=== PATIENT | female | born 1960 | race African-American/Black ===

== ENCOUNTER 2017-01-29 06:56 | Emergency (ER) | payer MEDICAID, OTHER ==
[~2017-01-29] VITALS: Ht 180.3 cm; Wt 81.0 kg
[~2017-01-29 06:56] MED LIST: ELAVIL; GABA300C PO; GLYBURIDE; METFORMIN PO
[2017-01-29 07:50] LABS: BASOPHILS % 0.8 % (0.0-2.0); EOSINOPHILS % 1.7 % (0.0-5.0); HEMATOCRIT. 41.6 % (36.0-48.0); HEMOGLOBIN. 13.5 g/dL (12.0-16.0); LYMPHOCYTES % 29.8 % (20.0-50.0); MEAN CORPUSCULAR HEMOGLOBIN 28.7 pg (28.0-32.0); MEAN CORPUSCULAR VOLUME 88.2 fL (81.0-99.0); MEAN PLATELET VOLUME 7.4 fl (7.4-10.4); MONOCYTES % 6.3 % (2.0-8.0); NEUTROPHILS % 61.4 % (40.0-76.0); PLATELET 252 x1000/uL (130-400); RED BLOOD CELL COUNT 4.72 mill/uL (4.2-5.4); RED CELL DISTRIBUTION WIDTH 15.2 % (11.6-14.6)
[2017-01-29 08:03] LABS: CHLORIDE 99 mEq/L (98-107)
[2017-01-29 08:04] LABS: CARBON DIOXIDE 33 mEq/L (21-32)
[2017-01-29 08:11] LABS: CLARITY URINE CLEAR (CLEAR); COLOR URINE YELLOW (YELLOW); GLUCOSE URINE 3+ (NEGATIVE); KETONES URINE NEGATIVE (NEGATIVE); LEUKOCYTE ESTERASE URINE NEGATIVE (NEGATIVE); NITRITE URINE NEGATIVE (NEGATIVE); OCCULT BLOOD URINE 1+ (NEGATIVE); PH URINE 6.5 (4.5-8.0); PROTEIN URINE 1+ (NEGATIVE); SPECIFIC GRAVITY URINE 1.038 (1.005-1.030)
[2017-01-29 09:23] VITALS: BP 142/88
== END 2017-01-29 09:26 | disposition home or self-care (01) ==
LOC: ER 07:30
DX: K62.5 Hemorrhage of anus and rectum (principal); F12.10 Cannabis abuse, uncomplicated; F17.200 Nicotine dependence, unspecified, uncomplicated; E11.9 Type 2 diabetes mellitus without complications; Z79.899 Other long term (current) drug therapy
CPT/HCPCS: 36415; 80048; 81001; 85025; 99284

== ENCOUNTER 2017-11-21 10:54 | Emergency (ER) | payer MEDICAID ==
[~2017-11-21] VITALS: Ht 180.3 cm; Wt 86.0 kg
[2017-11-21 11:35] VITALS: BP 158/84
[2017-11-21] MEDS ORDERED: PIPERACILLIN/TAZ 3.375G PREMIX 50 ML IV ONE (12:30)
[2017-11-21] MEDS ORDERED: MORPHINE SULFATE 2 MG/ML CPJ (NOT FOR IM USE) IV ONE (12:30)
[2017-11-21] MEDS ORDERED: PIPERACILLIN/TAZOBACTAM 3.375GM/50ML PREMIX IV ONE (12:30)
[2017-11-21] MEDS ORDERED: CEFTRIAXONE SODIUM 1 G/VIAL IM ONE (12:30)
== END 2017-11-21 18:35 | disposition left against medical advice (07) ==
LOC: ER 11:36
DX: M79.645 Pain in left finger(s) (principal); J45.909 Unspecified asthma, uncomplicated; J44.9 Chronic obstructive pulmonary disease, unspecified; E11.9 Type 2 diabetes mellitus without complications; I10 Essential (primary) hypertension; F12.10 Cannabis abuse, uncomplicated
CPT/HCPCS: 99281

== ENCOUNTER 2017-11-23 10:17 | Emergency (ER) | payer MEDICAID ==
[~2017-11-23] VITALS: Ht 180.3 cm; Wt 87.0 kg
[2017-11-23] MEDS ORDERED: CEPHALEXIN 500MG CAPSULE PO ONE (11:30)
[2017-11-23 11:57] VITALS: BP 139/82
== END 2017-11-23 12:24 | disposition home or self-care (01) ==
LOC: ER 10:55
DX: E11.621 Type 2 diabetes mellitus with foot ulcer (principal); L97.529 Non-pressure chronic ulcer of other part of left foot with unspecified severity; E11.40 Type 2 diabetes mellitus with diabetic neuropathy, unspecified; I10 Essential (primary) hypertension; F17.210 Nicotine dependence, cigarettes, uncomplicated; F12.90 Cannabis use, unspecified, uncomplicated; Z79.84 Long term (current) use of oral hypoglycemic drugs
CPT/HCPCS: 73660; 99284; Z7610

== ENCOUNTER 2018-12-18 12:11 | Emergency (ER) | payer MEDICAID ==
[~2018-12-18] VITALS: Ht 165.1 cm; Wt 82.0 kg
[2018-12-18] MEDS ORDERED: SODIUM CHLORIDE 0.9% 1,000 ML IV ONE (13:00)
[2018-12-18] MEDS ORDERED: ONDANSETRON HCL 4MG/2ML INJ IV ONE (13:00)
[2018-12-18] MEDS ORDERED: NA PHOS,M-B/NA PHOS,DI-BA ENEMA 118ML PR ONE (13:00)
[2018-12-18] MEDS ORDERED: MAGNESIUM CITRATE 300ML SOLUTION PO ONE (13:00)
[2018-12-18] MEDS ORDERED: LACTULOSE 20G/30ML UDC PO ONE (13:00)
[2018-12-18 15:55] LABS: CHLORIDE 99 mEq/L (98-107)
[2018-12-18 16:00] LABS: BASOPHILS % 0.5 % (0.0-2.0); EOSINOPHILS % 0.1 % (0.0-5.0); HEMATOCRIT. 43.4 % (36.0-48.0); HEMOGLOBIN. 13.8 g/dL (12.0-16.0); LYMPHOCYTES % 12.2 % (20.0-50.0); MEAN CORPUSCULAR HEMOGLOBIN 28.9 pg (28.0-32.0); MEAN CORPUSCULAR VOLUME 90.9 fL (81.0-99.0); MEAN PLATELET VOLUME 8.5 fl (7.4-10.4); MONOCYTES % 2.7 % (2.0-8.0); NEUTROPHILS % 84.5 % (40.0-76.0); PLATELET 274 x1000/uL (130-400); RED BLOOD CELL COUNT 4.77 mill/uL (4.2-5.4); RED CELL DISTRIBUTION WIDTH 13.9 % (11.6-14.6)
[2018-12-18 17:06] VITALS: BP 136/59
== END 2018-12-18 17:07 | disposition home or self-care (01) ==
LOC: ER 13:42
DX: K59.00 Constipation, unspecified (principal); E11.9 Type 2 diabetes mellitus without complications; Z79.899 Other long term (current) drug therapy
CPT/HCPCS: 36415; 80053; 82962; 85025; 93005; 96374; 99284; J2405; J7030; Z7610

== ENCOUNTER 2020-04-06 08:14 | Emergency (ER) | payer MEDICAID ==
[~2020-04-06] VITALS: Ht 167.6 cm; Wt 55.0 kg
[2020-04-06] MEDS ORDERED: TRAMADOL 50MG TABLET PO ONE (09:45)
[2020-04-06] MEDS ORDERED: IBUPROFEN 600MG TABLET PO ONE (09:45)
[2020-04-06] MEDS ORDERED: HYDROCODONE/ACETAMINOPHEN 5/325MG TABLET PO ONE (12:45)
[2020-04-06 12:55] VITALS: BP 148/69
== END 2020-04-06 13:04 | disposition home or self-care (01) ==
LOC: ER 08:14
DX: M48.061 Spinal stenosis, lumbar region without neurogenic claudication (principal); E11.9 Type 2 diabetes mellitus without complications; Z79.899 Other long term (current) drug therapy
CPT/HCPCS: 72131; 73502; 93005; 99284; 99285

== ENCOUNTER 2020-12-11 09:15 | Emergency (ER) | payer MEDICAID ==
[~2020-12-11] VITALS: Ht 177.8 cm; Wt 77.0 kg
[2020-12-11] MEDS ORDERED: IBUPROFEN 600MG TABLET PO STA (09:52)
[2020-12-11] MEDS ORDERED: HYDROCODONE/ACETAMINOPHEN 5/325MG TABLET PO ONE (10:30)
[2020-12-11 10:36] VITALS: BP 133/69
[2020-12-11 10:44] LABS: BASOPHILS % 0.7 % (0.0-2.0); EOSINOPHILS % 0.4 % (0.0-5.0); HEMATOCRIT. 41.5 % (36.0-48.0); HEMOGLOBIN. 13.5 g/dL (12.0-16.0); LYMPHOCYTES % 31.7 % (20.0-50.0); MEAN CORPUSCULAR HEMOGLOBIN 30.2 pg (28.0-32.0); MEAN CORPUSCULAR VOLUME 92.8 fL (81.0-99.0); MEAN PLATELET VOLUME 7.1 fl (7.4-10.4); MONOCYTES % 4.4 % (2.0-8.0); NEUTROPHILS % 62.8 % (40.0-76.0); PLATELET 297 x1000/uL (130-400); RED BLOOD CELL COUNT 4.47 mill/uL (4.2-5.4)
[2020-12-11 10:48] LABS: CHLORIDE 98 mEq/L (98-107)
[2020-12-11 10:49] LABS: CLARITY URINE CLEAR (CLEAR); COLOR URINE YELLOW (YELLOW); KETONES URINE NEGATIVE (NEGATIVE); LEUKOCYTE ESTERASE URINE NEGATIVE (NEGATIVE); NITRITE URINE NEGATIVE (NEGATIVE); OCCULT BLOOD URINE NEGATIVE (NEGATIVE); PH URINE 5.5 (4.5-8.0); PROTEIN URINE NEGATIVE (NEGATIVE); SPECIFIC GRAVITY URINE 1.007 (1.005-1.030); UROBILINOGEN URINE 0.2 E.U./dL (0.2-1.0)
[2020-12-11] MEDS ORDERED: AMOX-424 MT (11:06)
[2020-12-11] MEDS ORDERED: HYDR-4346 PO (11:07)
== END 2020-12-11 12:07 | disposition home or self-care (01) ==
LOC: ER 09:29
DX: S90.122A Contusion of left lesser toe(s) without damage to nail, initial encounter (principal); E11.9 Type 2 diabetes mellitus without complications; Z79.899 Other long term (current) drug therapy; X58.XXXA Exposure to other specified factors, initial encounter; Y93.89 Activity, other specified; Y92.89 Other specified places as the place of occurrence of the external cause; Y99.8 Other external cause status
CPT/HCPCS: 36415; 73630; 80053; 81003; 84550; 85025; 93005; 99285; Z7610

== ENCOUNTER 2020-12-23 18:17 | Emergency (ER) | payer MEDICAID ==
[~2020-12-23] VITALS: Ht 170.2 cm; Wt 77.0 kg
[~2020-12-23 18:17] MED LIST changes: +AMOX-424 MT; +HYDR-4346 PO
[2020-12-23 19:56] VITALS: BP 114/56
[2020-12-23 20:20] LABS: BASOPHILS % 0.4 % (0.0-2.0); EOSINOPHILS % 0.8 % (0.0-5.0); HEMATOCRIT. 38.8 % (36.0-48.0); HEMOGLOBIN. 12.8 g/dL (12.0-16.0); LYMPHOCYTES % 26.7 % (20.0-50.0); MEAN CORPUSCULAR HEMOGLOBIN 30.1 pg (28.0-32.0); MEAN PLATELET VOLUME 7.2 fl (7.4-10.4); MONOCYTES % 6.9 % (2.0-8.0); NEUTROPHILS % 65.2 % (40.0-76.0); PLATELET 285 x1000/uL (130-400); RED BLOOD CELL COUNT 4.27 mill/uL (4.2-5.4); RED CELL DISTRIBUTION WIDTH 13.6 % (11.6-14.6)
[2020-12-23 20:26] LABS: CHLORIDE 100 mEq/L (98-107)
[2020-12-23 20:30] LABS: C REACTIVE PROTEIN QUANT 1.3 mg/L (0.0-3.0)
[2020-12-23] MEDS ORDERED: TRAM50TA3 MT (21:08)
== END 2020-12-23 21:25 | disposition home or self-care (01) ==
LOC: ER 18:17
DX: M79.89 Other specified soft tissue disorders (principal); E11.9 Type 2 diabetes mellitus without complications; I10 Essential (primary) hypertension; Z79.899 Other long term (current) drug therapy
CPT/HCPCS: 36415; 73630; 80053; 85025; 86140; 99284; Z7610

== ENCOUNTER 2022-01-18 19:31 | Inpatient (IN) | payer MEDICAID ==
[~2022-01-18] VITALS: Ht 167.6 cm; Wt 76.2 kg
[~2022-01-18 19:31] MED LIST changes: +TRAM50TA3 MT
[2022-01-18 21:20] LABS: BASOPHILS % 0.5 % (0.0-2.0); EOSINOPHILS % 2.3 % (0.0-5.0); HEMATOCRIT. 35.6 % (36.0-48.0); HEMOGLOBIN. 11.3 g/dL (12.0-16.0); LYMPHOCYTES % 28.1 % (20.0-50.0); MEAN CORPUSCULAR HEMOGLOBIN 28.8 pg (28.0-32.0); MEAN CORPUSCULAR VOLUME 90.6 fL (81.0-99.0); MEAN PLATELET VOLUME 7.3 fl (7.4-10.4); MONOCYTES % 6.6 % (2.0-8.0); NEUTROPHILS % 62.5 % (40.0-76.0); PLATELET 255 x1000/uL (130-400); RED BLOOD CELL COUNT 3.93 mill/uL (4.2-5.4); RED CELL DISTRIBUTION WIDTH 14.2 % (11.6-14.6)
[2022-01-18 21:27] LABS: CHLORIDE 105 mEq/L (98-107)
[2022-01-18] MEDS ORDERED: FUROSEMIDE 40MG/4ML VIAL IVP ONE (22:00)
[2022-01-18] MEDS ORDERED: ASPIRIN 81MG TABLET PO ONE (22:00)
[2022-01-19] VITALS (7 sets, daily range): BP systolic 125–132; BP diastolic 76–88
[2022-01-19] MEDS: HYDROCODONE/ACETAMINOPHEN 5/325MG TABLET PO PRN ×2 (06:39→14:21)
[2022-01-19] MEDS ORDERED: NALOXONE HCL 0.4MG/ML VIAL IV PRN (09:00)
[2022-01-19] MEDS ORDERED: MORPHINE SULFATE 2 MG/ML CPJ (NOT FOR IM USE) IV NR (09:00)
[2022-01-19] MEDS ORDERED: CLONIDINE 0.1MG TABLET PO PRN (09:45)
[2022-01-19] MEDS ORDERED: DIPHENHYDRAMINE 50MG/ML VIAL IV PRN (09:45)
[2022-01-19] MEDS ORDERED: IPRATROPIUM/ALBUTEROL 0.5-3(2.5)MG/3ML NEB HHN PRN (09:45)
[2022-01-19] MEDS ORDERED: ACETAMINOPHEN 325MG TABLET PO PRN (09:45)
[2022-01-19] MEDS ORDERED: DEXTROSE 50% WATER 50ML SYRINGE IV PRN (10:00)
[2022-01-19] MEDS: BLOOD SUGAR DIAGNOSTIC STRIP TEST SCH ×3 (12:04→21:44)
[2022-01-19] MEDS ORDERED: INSULIN LISPRO 100 UNITS/ML SUBCUT SCH (13:10)
[2022-01-19] MEDS: MAGNESIUM/ALUMINUM HYDROXIDE/SIMETHICONE 30ML UDC PO PRN (17:52)
[2022-01-19] MEDS: METFORMIN HCL 500MG TABLET PO SCH (17:52)
[2022-01-19 20:14] LABS: BASOPHILS % 0.6 % (0.0-2.0); EOSINOPHILS % 1.8 % (0.0-5.0); HEMATOCRIT. 33.9 % (36.0-48.0); HEMOGLOBIN. 10.8 g/dL (12.0-16.0); LYMPHOCYTES % 35.6 % (20.0-50.0); MEAN CORPUSCULAR HEMOGLOBIN 29.2 pg (28.0-32.0); MEAN CORPUSCULAR VOLUME 91.7 fL (81.0-99.0); MEAN PLATELET VOLUME 7.5 fl (7.4-10.4); MONOCYTES % 6.7 % (2.0-8.0); NEUTROPHILS % 55.3 % (40.0-76.0); PLATELET 236 x1000/uL (130-400); RED CELL DISTRIBUTION WIDTH 14.2 % (11.6-14.6)
[2022-01-19 20:25] LABS: CHLORIDE 101 mEq/L (98-107)
[2022-01-19] MEDS ORDERED: ENOXAPARIN 80MG/0.8ML SYR SUBCUT NR (21:01)
[2022-01-19] MEDS: FUROSEMIDE 40MG/4ML VIAL IVP SCH (21:40)
[2022-01-19] MEDS: GABAPENTIN 300MG CAPSULE PO SCH (21:41)
[2022-01-19] MEDS: CARVEDILOL 3.125 MG TABLET PO SCH (21:41)
[2022-01-19] MEDS: ATORVASTATIN CALCIUM 10MG TABLET PO SCH (21:42)
[2022-01-19] MEDS: AMITRIPTYLINE 25MG TABLET PO SCH (21:42)
[2022-01-20] VITALS: BP 139/87
[2022-01-20 01:10] LABS: PROTHROMBIN TIME 10.8 sec (9.6-11.0)
[2022-01-20 01:23] LABS: *AMPHETAMINES SCREEN URINE NEGATIVE (NEGATIVE); *BARBITURATES SCREEN URINE NEGATIVE (NEGATIVE); *BENZODIAZEPINES SCREEN URINE NEGATIVE (NEGATIVE); *COCAINE SCREEN URINE NEGATIVE (NEGATIVE); CANNABINOID URINE SCREEN PRESUMTIVE POSITIVE (NEGATIVE); METHADONE URINE SCREEN NEGATIVE (NEGATIVE); OPIATES URINE SCREEN PRESUMTIVE POSITIVE (NEGATIVE); PHENCYCLIDINE URINE SCREEN NEGATIVE (NEGATIVE)
[2022-01-20 04:00] VITALS: BP 126/70
[2022-01-20] MEDS: GABAPENTIN 300MG CAPSULE PO SCH ×3 (05:52→21:42)
[2022-01-20] MEDS: BLOOD SUGAR DIAGNOSTIC STRIP TEST SCH ×4 (05:52→21:52)
[2022-01-20 06:14] LABS: BASOPHILS % 0.4 % (0.0-2.0); EOSINOPHILS % 2.2 % (0.0-5.0); HEMATOCRIT. 34.2 % (36.0-48.0); LYMPHOCYTES % 38.1 % (20.0-50.0); MEAN CORPUSCULAR HEMOGLOBIN 28.9 pg (28.0-32.0); MEAN CORPUSCULAR VOLUME 89.9 fL (81.0-99.0); MEAN PLATELET VOLUME 7.4 fl (7.4-10.4); MONOCYTES % 7.2 % (2.0-8.0); NEUTROPHILS % 52.1 % (40.0-76.0); PLATELET 242 x1000/uL (130-400); RED BLOOD CELL COUNT 3.81 mill/uL (4.2-5.4); RED CELL DISTRIBUTION WIDTH 14.1 % (11.6-14.6)
[2022-01-20 06:27] LABS: CHLORIDE 102 mEq/L (98-107)
[2022-01-20 06:37] LABS: HDL CHOLESTEROL 67 mg/dL (40-59); LDL CHOLESTEROL 129 mg/dL (5-100)
[2022-01-20 08:00] VITALS: BP 124/79
[2022-01-20] MEDS: CARVEDILOL 3.125 MG TABLET PO SCH ×2 (08:41→21:00)
[2022-01-20] MEDS: ASPIRIN 81MG EC TABLET PO SCH (08:41)
[2022-01-20] MEDS: ENOXAPARIN 80MG/0.8ML SYR SUBCUT SCH ×2 (08:42→21:43)
[2022-01-20] MEDS: FUROSEMIDE 40MG/4ML VIAL IVP SCH (08:42)
[2022-01-20] MEDS: ONDANSETRON HCL 4MG/2ML INJ IV PRN (08:46)
[2022-01-20] MEDS: METFORMIN HCL 500MG TABLET PO SCH (08:46)
[2022-01-20 12:00] VITALS: BP 120/67
[2022-01-20] MEDS: HYDROCODONE/ACETAMINOPHEN 5/325MG TABLET PO PRN ×2 (14:46→21:42)
[2022-01-20 16:00] VITALS: BP 113/60
[2022-01-20] MEDS ORDERED: DEXTROSE 50% WATER 50ML SYRINGE IV PRN ×2 (16:30→23:15)
[2022-01-20 16:45] LABS: TOTAL IRON BINDING CAPACITY 362 ug/dL (250-450)
[2022-01-20] MEDS: INSULIN LISPRO 100 UNITS/ML SUBCUT SCH ×2 (17:26→21:44)
[2022-01-20 17:41] LABS: FOLIC ACID (FOLATE) SERUM 12.7 ng/mL (>5.38)
[2022-01-20] MEDS ORDERED: METFORMIN HCL 500MG TABLET PO SCH (18:10)
[2022-01-20 20:00] VITALS: BP 113/61
[2022-01-20] MEDS: AMITRIPTYLINE 25MG TABLET PO SCH (21:42)
[2022-01-20] MEDS: ATORVASTATIN CALCIUM 10MG TABLET PO SCH (21:42)
[2022-01-20] MEDS: MAGNESIUM/ALUMINUM HYDROXIDE/SIMETHICONE 30ML UDC PO PRN (21:43)
[2022-01-20] MEDS ORDERED: HYDRALAZINE 20MG/ML VIAL IV PRN (23:15)
[2022-01-21] VITALS: BP 114/66
[2022-01-21 04:00] VITALS: BP 108/70
[2022-01-21] MEDS: GABAPENTIN 300MG CAPSULE PO SCH ×3 (06:07→20:22)
[2022-01-21] MEDS: BLOOD SUGAR DIAGNOSTIC STRIP TEST SCH ×4 (06:43→20:23)
[2022-01-21 07:22] LABS: BASOPHILS % 0.4 % (0.0-2.0); EOSINOPHILS % 3.3 % (0.0-5.0); HEMATOCRIT. 34.1 % (36.0-48.0); LYMPHOCYTES % 49.9 % (20.0-50.0); MEAN CORPUSCULAR HEMOGLOBIN 29.2 pg (28.0-32.0); MEAN CORPUSCULAR VOLUME 90.4 fL (81.0-99.0); MEAN PLATELET VOLUME 7.8 fl (7.4-10.4); MONOCYTES % 7.6 % (2.0-8.0); NEUTROPHILS % 38.8 % (40.0-76.0); PLATELET 240 x1000/uL (130-400); RED BLOOD CELL COUNT 3.77 mill/uL (4.2-5.4); RED CELL DISTRIBUTION WIDTH 14.1 % (11.6-14.6)
[2022-01-21 07:24] LABS: CHLORIDE 99 mEq/L (98-107)
[2022-01-21 08:00] VITALS: BP 123/42
[2022-01-21] MEDS: FUROSEMIDE 40MG/4ML VIAL IVP SCH (08:39)
[2022-01-21] MEDS: ASPIRIN 81MG EC TABLET PO SCH (08:39)
[2022-01-21] MEDS: ENOXAPARIN 80MG/0.8ML SYR SUBCUT SCH ×2 (08:39→20:22)
[2022-01-21] MEDS: CARVEDILOL 3.125 MG TABLET PO SCH ×2 (08:40→20:23)
[2022-01-21] MEDS: INSULIN LISPRO 100 UNITS/ML SUBCUT SCH ×4 (08:44→20:25)
[2022-01-21] MEDS ORDERED: LOSARTAN POTASSIUM 100 MG TABLET PO SCH (09:00)
[2022-01-21] MEDS: POLYETHYLENE GLYCOL 3350 (17GM) 1 DOSE PACK PO SCH (10:44)
[2022-01-21] MEDS: MAGNESIUM/ALUMINUM HYDROXIDE/SIMETHICONE 30ML UDC PO PRN (10:44)
[2022-01-21 12:00] VITALS: BP 126/71
[2022-01-21] MEDS ORDERED: AMLODIPINE 2.5MG TABLET PO SCH (12:45)
[2022-01-21 15:57] VITALS: BP 116/58
[2022-01-21] MEDS ORDERED: HYDRALAZINE HCL 50MG TABLET PO SCH (16:00)
[2022-01-21] MEDS: CYANOCOBALAMIN 1000MCG/ML VIAL SUBCUT SCH (16:23)
[2022-01-21] MEDS: PANTOPRAZOLE SODIUM 40 MG/VIAL IV SCH (16:23)
[2022-01-21] MEDS: AMLODIPINE 2.5MG TABLET PO SCH (16:24)
[2022-01-21 20:01] VITALS: BP 123/75
[2022-01-21] MEDS: AMITRIPTYLINE 25MG TABLET PO SCH (20:22)
[2022-01-21] MEDS: ATORVASTATIN CALCIUM 10MG TABLET PO SCH (20:22)
[2022-01-22] VITALS (15 sets, daily range): BP systolic 106–149; BP diastolic 26–83
[2022-01-22] MEDS: GABAPENTIN 300MG CAPSULE PO SCH ×3 (05:21→21:49)
[2022-01-22] MEDS: BLOOD SUGAR DIAGNOSTIC STRIP TEST SCH ×4 (05:24→21:49)
[2022-01-22] MEDS: INSULIN LISPRO 100 UNITS/ML SUBCUT SCH ×4 (05:40→21:55)
[2022-01-22 06:43] LABS: CHLORIDE 101 mEq/L (98-107)
[2022-01-22 06:47] LABS: BASOPHILS % 0.6 % (0.0-2.0); HEMATOCRIT. 30.8 % (36.0-48.0); HEMOGLOBIN. 10.2 g/dL (12.0-16.0); LYMPHOCYTES % 44.3 % (20.0-50.0); MEAN CORPUSCULAR HEMOGLOBIN 29.8 pg (28.0-32.0); MEAN PLATELET VOLUME 7.8 fl (7.4-10.4); MONOCYTES % 7.9 % (2.0-8.0); NEUTROPHILS % 44.2 % (40.0-76.0); PLATELET 223 x1000/uL (130-400); RED BLOOD CELL COUNT 3.42 mill/uL (4.2-5.4)
[2022-01-22] MEDS ORDERED: IODIXANOL 320MG/ML 100 ML BOTTLE IV ONE ×2 (08:39→09:39)
[2022-01-22] MEDS ORDERED: FENTANYL CITRATE/PF 50MCG/ML 2ML VIAL ONE (08:40)
[2022-01-22] MEDS ORDERED: MIDAZOLAM HCL 2 MG/2 ML VIAL ONE ×2 (08:40→09:14)
[2022-01-22] MEDS ORDERED: HEPARIN 1000 UNITS/ML 10ML ONE (08:40)
[2022-01-22] MEDS ORDERED: LIDOCAINE HCL 1% 10 MG/ML 10ML VIAL ONE (08:40)
[2022-01-22] MEDS: PANTOPRAZOLE SODIUM 40 MG/VIAL IV SCH (09:00)
[2022-01-22] MEDS: CYANOCOBALAMIN 1000MCG/ML VIAL SUBCUT SCH (09:00)
[2022-01-22] MEDS: ENOXAPARIN 80MG/0.8ML SYR SUBCUT SCH ×2 (09:00→21:50)
[2022-01-22] MEDS: CARVEDILOL 3.125 MG TABLET PO SCH ×2 (09:00→21:00)
[2022-01-22] MEDS: POLYETHYLENE GLYCOL 3350 (17GM) 1 DOSE PACK PO SCH (09:00)
[2022-01-22] MEDS: ASPIRIN 81MG EC TABLET PO SCH (09:00)
[2022-01-22] MEDS: FUROSEMIDE 40MG/4ML VIAL IVP SCH (09:00)
[2022-01-22] MEDS: AMLODIPINE 2.5MG TABLET PO SCH ×2 (09:00→16:10)
[2022-01-22] MEDS ORDERED: HEPARIN SODIUM 1,000 UNIT/1ML VIAL IV ONE (09:12)
[2022-01-22] MEDS ORDERED: NICARDIPINE 100MCG/ML 10ML VIAL (CATH LAB) IV ONE (09:12)
[2022-01-22] MEDS ORDERED: NITROGLYCERIN 50MCG/ML 10ML VIAL (CATH LAB) IV ONE (09:12)
[2022-01-22] MEDS ORDERED: ONDANSETRON HCL 4MG/2ML INJ ONE (09:33)
[2022-01-22] MEDS ORDERED: ASPIRIN 325MG TABLET ONE (10:03)
[2022-01-22] MEDS ORDERED: CLOPIDOGREL 75MG TABLET ONE (10:03)
[2022-01-22] MEDS ORDERED: ATROPINE SULFATE 1MG/10ML SYR IV PRN (10:30)
[2022-01-22] MEDS ORDERED: ONDANSETRON HCL 4MG/2ML INJ IV PRN (10:30)
[2022-01-22] MEDS ORDERED: ACETAMINOPHEN 325MG TABLET PO PRN (10:30)
[2022-01-22] MEDS: HYDROCODONE/ACETAMINOPHEN 5/325MG TABLET PO PRN (11:45)
[2022-01-22] MEDS: ONDANSETRON HCL 4MG/2ML INJ IV PRN (16:10)
[2022-01-22] MEDS: LIDOCAINE 5% PATCH TOP SCH (16:11)
[2022-01-22] MEDS ORDERED: ZOLPIDEM TARTRATE 5MG TABLET PO PRN (17:00)
[2022-01-22] MEDS: ATORVASTATIN CALCIUM 10MG TABLET PO SCH (21:49)
[2022-01-22] MEDS: AMITRIPTYLINE 25MG TABLET PO SCH (21:49)
[2022-01-23] VITALS (11 sets, daily range): BP systolic 91–126; BP diastolic 27–78
[2022-01-23] MEDS: GABAPENTIN 300MG CAPSULE PO SCH ×2 (05:07→13:12)
[2022-01-23] MEDS: BLOOD SUGAR DIAGNOSTIC STRIP TEST SCH ×2 (07:32→12:08)
[2022-01-23 07:49] LABS: BASOPHILS % 0.6 % (0.0-2.0); EOSINOPHILS % 1.6 % (0.0-5.0); HEMOGLOBIN. 10.2 g/dL (12.0-16.0); LYMPHOCYTES % 33.4 % (20.0-50.0); MEAN CORPUSCULAR VOLUME 91.2 fL (81.0-99.0); MEAN PLATELET VOLUME 7.7 fl (7.4-10.4); MONOCYTES % 10.2 % (2.0-8.0); NEUTROPHILS % 54.2 % (40.0-76.0); PLATELET 222 x1000/uL (130-400); RED BLOOD CELL COUNT 3.51 mill/uL (4.2-5.4); RED CELL DISTRIBUTION WIDTH 13.8 % (11.6-14.6)
[2022-01-23 08:00] LABS: CHLORIDE 101 mEq/L (98-107)
[2022-01-23] MEDS: ENOXAPARIN 80MG/0.8ML SYR SUBCUT SCH (08:48)
[2022-01-23] MEDS: LIDOCAINE 5% PATCH TOP SCH (08:49)
[2022-01-23] MEDS: PANTOPRAZOLE SODIUM 40 MG/VIAL IV SCH (08:49)
[2022-01-23] MEDS: FUROSEMIDE 40MG/4ML VIAL IVP SCH (08:49)
[2022-01-23] MEDS: CARVEDILOL 3.125 MG TABLET PO SCH (08:50)
[2022-01-23] MEDS: CYANOCOBALAMIN 1000MCG/ML VIAL SUBCUT SCH (08:50)
[2022-01-23] MEDS: AMLODIPINE 2.5MG TABLET PO SCH (08:50)
[2022-01-23] MEDS: POLYETHYLENE GLYCOL 3350 (17GM) 1 DOSE PACK PO SCH (08:51)
[2022-01-23] MEDS ORDERED: CLOPIDOGREL 75MG TABLET PO SCH (09:00)
[2022-01-23] MEDS ORDERED: ASPIRIN 325MG TABLET PO SCH (09:00)
[2022-01-23] MEDS ORDERED: FURO40TA5 MT (11:07)
[2022-01-23] MEDS ORDERED: DOCU100T MT (11:07)
[2022-01-23] MEDS ORDERED: AMLO5TAB88 MT (11:07)
[2022-01-23] MEDS ORDERED: ATOR10TA PO (11:07)
[2022-01-23] MEDS ORDERED: ASPI-1406 MT (11:07)
[2022-01-23] MEDS ORDERED: COR3 PO (11:07)
[2022-01-23] MEDS ORDERED: CLOP75TA15 PO (11:07)
[2022-01-23] MEDS ORDERED: FERR325T6 MT (11:07)
[2022-01-23] MEDS ORDERED: LIDO700A30 TOP (11:07)
[2022-01-23] MEDS ORDERED: BLOO-1482 MC (11:51)
[2022-01-23] MEDS: INSULIN LISPRO 100 UNITS/ML SUBCUT SCH ×2 (12:08→12:20)
[2022-01-24] MEDS ORDERED: PANTOPRAZOLE 40MG DR TABLET PO SCH (09:00)
[2022-01-24] MEDS ORDERED: ASPIRIN 81MG EC TABLET PO SCH (09:00)
== END 2022-01-23 15:05 | disposition home or self-care (01) | DRG 174 ==
LOC: ER 19:31 → MICUSO 21:56 → EDBEDREQ 22:06 → EDBEDREQTM 22:06 → 7WST 01-19 04:24 → 3WST 01-22 10:50
PROVIDERS: ADMIT Internal Medicine; ATTEND Internal Medicine
PROC: 027035Z Dilation of Coronary Artery, One Artery with Two Drug-eluting Intraluminal Devices, Percutaneous Approach (ICD-10-PCS; principal; 2022-01-22)
PROC: 4A023N7 Measurement of Cardiac Sampling and Pressure, Left Heart, Percutaneous Approach (ICD-10-PCS; 2022-01-22)
PROC: B211YZZ Fluoroscopy of Multiple Coronary Arteries using Other Contrast (ICD-10-PCS; 2022-01-22)
PROC: B215YZZ Fluoroscopy of Left Heart using Other Contrast (ICD-10-PCS; 2022-01-22)
DX: I21.4 Non-ST elevation (NSTEMI) myocardial infarction (principal); J96.01 Acute respiratory failure with hypoxia; I50.41 Acute combined systolic (congestive) and diastolic (congestive) heart failure; I42.0 Dilated cardiomyopathy; D50.9 Iron deficiency anemia, unspecified; E11.22 Type 2 diabetes mellitus with diabetic chronic kidney disease; E78.5 Hyperlipidemia, unspecified; F12.10 Cannabis abuse, uncomplicated; F17.210 Nicotine dependence, cigarettes, uncomplicated; K59.00 Constipation, unspecified; Z20.822 Contact with and (suspected) exposure to COVID-19; I25.10 Atherosclerotic heart disease of native coronary artery without angina pectoris; I13.0 Hypertensive heart and chronic kidney disease with heart failure and stage 1 through stage 4 chronic kidney disease, or unspecified chronic kidney disease; N18.9 Chronic kidney disease, unspecified; Z79.899 Other long term (current) drug therapy; Z79.891 Long term (current) use of opiate analgesic; Z79.84 Long term (current) use of oral hypoglycemic drugs; Z71.6 Tobacco abuse counseling; J44.9 Chronic obstructive pulmonary disease, unspecified
CPT/HCPCS: 36415; 71045; 80048; 80053; 80061; 80305; 82607; 82728; 82746; 82962; 83036; 83540; 83550; 83735; 83880; 84443; 84484; 85025; 85347; 87426; 92928; 93005; 93306; 93458; 93970; 99291; C1725; C1726; C1769; C1874; C1887; C1893; C9113; J1644; J1650; J1815; J1940; J2250; J2270; J2405; J3010; J3420; J3490; Q9967

== ENCOUNTER 2022-07-24 13:49 | Inpatient (IN) | payer MEDICAID ==
[~2022-07-24] VITALS: Ht 170.2 cm; Wt 85.4 kg
[~2022-07-24 13:49] MED LIST changes: +AMLO5TAB88 MT; -AMOX-424 MT; +ASPI-1406 MT; +BLOO-1482 MC; +CLOP75TA15 PO; +COR3 PO; +DOCU100T MT; +FERR325T6 MT; +FURO40TA5 MT; -GLYBURIDE; +LIDO700A30 TOP
[2022-07-24 14:39] LABS: BASOPHILS % 0.8 % (0.0-2.0); EOSINOPHILS % 0.8 % (0.0-5.0); HEMATOCRIT. 38.4 % (36.0-48.0); HEMOGLOBIN. 11.9 g/dL (12.0-16.0); LYMPHOCYTES % 31.8 % (20.0-50.0); MEAN CORPUSCULAR HEMOGLOBIN 26.2 pg (28.0-32.0); MEAN CORPUSCULAR VOLUME 84.6 fL (81.0-99.0); MEAN PLATELET VOLUME 7.7 fl (7.4-10.4); MONOCYTES % 5.8 % (2.0-8.0); NEUTROPHILS % 60.8 % (40.0-76.0); PLATELET 234 x1000/uL (130-400); RED BLOOD CELL COUNT 4.54 mill/uL (4.2-5.4); RED CELL DISTRIBUTION WIDTH 15.9 % (11.6-14.6)
[2022-07-24 15:46] LABS: CHLORIDE 98 mEq/L (98-107)
[2022-07-24 15:55] LABS: ETHANOL BLOOD < 10 mg/dL
[2022-07-24] MEDS ORDERED: FUROSEMIDE 40MG/4ML VIAL IV ONE (16:45)
[2022-07-24] MEDS ORDERED: ASPIRIN 81MG TABLET PO ONE (16:45)
[2022-07-24] MEDS ORDERED: ENOXAPARIN 80MG/0.8ML SYR SUBCUT ONE (17:30)
[2022-07-24 21:25] LABS: *AMPHETAMINES SCREEN URINE NEGATIVE (NEGATIVE); *BARBITURATES SCREEN URINE NEGATIVE (NEGATIVE); *BENZODIAZEPINES SCREEN URINE NEGATIVE (NEGATIVE); *COCAINE SCREEN URINE NEGATIVE (NEGATIVE); CANNABINOID URINE SCREEN PRESUMTIVE POSITIVE (NEGATIVE); METHADONE URINE SCREEN NEGATIVE (NEGATIVE); OPIATES URINE SCREEN NEGATIVE (NEGATIVE); PHENCYCLIDINE URINE SCREEN NEGATIVE (NEGATIVE)
[2022-07-25 00:30] VITALS: BP 113/68
[2022-07-25] MEDS ORDERED: NA PHOS,M-B/NA PHOS,DI-BA ENEMA 118ML PR PRN (02:30)
[2022-07-25] MEDS ORDERED: IPRATROPIUM/ALBUTEROL 0.5-3(2.5)MG/3ML NEB HHN PRN (02:30)
[2022-07-25] MEDS ORDERED: CLONIDINE 0.1MG TABLET PO PRN (02:30)
[2022-07-25] MEDS ORDERED: DIPHENHYDRAMINE 50MG/ML VIAL IV PRN (02:30)
[2022-07-25] MEDS ORDERED: GUAIFENESIN 200MG/10ML SUGAR FREE UDC PO PRN (02:30)
[2022-07-25] MEDS ORDERED: ACETAMINOPHEN 325MG TABLET PO PRN (02:30)
[2022-07-25] MEDS ORDERED: MAGNESIUM/ALUMINUM HYDROXIDE/SIMETHICONE 30ML UDC PO PRN (02:30)
[2022-07-25] MEDS ORDERED: DEXTROSE 50% WATER 50ML SYRINGE IV PRN (03:00)
[2022-07-25] MEDS: BLOOD SUGAR DIAGNOSTIC STRIP TEST SCH ×4 (06:33→21:00)
[2022-07-25] MEDS: PANTOPRAZOLE 40MG DR TABLET PO SCH (06:48)
[2022-07-25] MEDS: AMLODIPINE 5MG TABLET PO SCH (06:48)
[2022-07-25] MEDS: HYDROCODONE/ACETAMINOPHEN 10/325MG TABLET PO PRN ×2 (06:55→12:28)
[2022-07-25 07:22] LABS: HEMATOCRIT 35.4 % (36.0-48.0); HEMOGLOBIN 11.2 g/dL (12.0-16.0); MEAN CORPUSCULAR VOLUME 82.3 fL (81.0-99.0); PLATELET 230 x1000/uL (130-400); RED BLOOD CELL COUNT 4.31 mill/uL (4.2-5.4); RED CELL DISTRIBUTION WIDTH 15.7 % (11.6-14.6)
[2022-07-25 08:00] VITALS: BP 105/62
[2022-07-25] MEDS: ENOXAPARIN 40MG/0.4ML SYR SUBCUT SCH (08:28)
[2022-07-25] MEDS: CLOPIDOGREL 75MG TABLET PO SCH (08:29)
[2022-07-25] MEDS: ASPIRIN 81MG TABLET PO SCH (08:29)
[2022-07-25] MEDS: INSULIN LISPRO 100 UNITS/ML SUBCUT SCH ×4 (08:30→21:00)
[2022-07-25] MEDS: CARVEDILOL 3.125 MG TABLET PO SCH ×2 (08:31→21:00)
[2022-07-25] MEDS ORDERED: FUROSEMIDE 40MG TABLET PO SCH (09:00)
[2022-07-25 12:00] VITALS: BP 111/72
[2022-07-25] MEDS ORDERED: NALOXONE HCL 0.4MG/ML VIAL IV PRN (13:00)
[2022-07-25] MEDS: ONDANSETRON HCL 4MG/2ML INJ IV PRN (14:35)
[2022-07-25 16:00] VITALS: BP 108/55
[2022-07-25 16:14] LABS: CHLORIDE 99 mEq/L (98-107)
[2022-07-25 16:57] LABS: HDL CHOLESTEROL 53 mg/dL (40-59); LDL CHOLESTEROL 70 mg/dL (5-100); PHOSPHORUS 4.1 mg/dL (2.5-4.9); T4 FREE 1.36 ng/dL (0.76-1.46); TOTAL IRON BINDING CAPACITY 404 ug/dL (250-450)
[2022-07-25] MEDS: FUROSEMIDE 40MG/4ML VIAL IVP SCH (17:24)
[2022-07-25 20:00] VITALS: BP 98/57
[2022-07-25] MEDS: ATORVASTATIN CALCIUM 40MG TABLET PO SCH (21:00)
[2022-07-26] VITALS (7 sets, daily range): BP systolic 91–114; BP diastolic 52–64
[2022-07-26 06:32] LABS: BASOPHILS % 0.5 % (0.0-2.0); EOSINOPHILS % 0.6 % (0.0-5.0); HEMATOCRIT. 33.7 % (36.0-48.0); HEMOGLOBIN. 10.5 g/dL (12.0-16.0); LYMPHOCYTES % 31.5 % (20.0-50.0); MEAN CORPUSCULAR HEMOGLOBIN 26.1 pg (28.0-32.0); MEAN CORPUSCULAR VOLUME 83.5 fL (81.0-99.0); MEAN PLATELET VOLUME 7.5 fl (7.4-10.4); MONOCYTES % 8.4 % (2.0-8.0); PLATELET 229 x1000/uL (130-400); RED BLOOD CELL COUNT 4.03 mill/uL (4.2-5.4); RED CELL DISTRIBUTION WIDTH 15.6 % (11.6-14.6)
[2022-07-26] MEDS: BLOOD SUGAR DIAGNOSTIC STRIP TEST SCH ×4 (06:43→21:00)
[2022-07-26] MEDS: FUROSEMIDE 40MG/4ML VIAL IVP SCH ×2 (07:15→17:14)
[2022-07-26] MEDS: ENOXAPARIN 40MG/0.4ML SYR SUBCUT SCH (08:57)
[2022-07-26] MEDS: PANTOPRAZOLE 40MG DR TABLET PO SCH (08:58)
[2022-07-26] MEDS: ASPIRIN 81MG TABLET PO SCH (08:58)
[2022-07-26] MEDS: CLOPIDOGREL 75MG TABLET PO SCH (08:58)
[2022-07-26] MEDS: ACETAMINOPHEN 325MG TABLET PO PRN (08:59)
[2022-07-26] MEDS: INSULIN LISPRO 100 UNITS/ML SUBCUT SCH ×4 (08:59→21:55)
[2022-07-26] MEDS: AMLODIPINE 5MG TABLET PO SCH (08:59)
[2022-07-26] MEDS: CARVEDILOL 3.125 MG TABLET PO SCH ×2 (08:59→21:00)
[2022-07-26] MEDS: INSULIN GLARGINE 100 UNITS/ML SUBCUT SCH (10:06)
[2022-07-26] MEDS: GABAPENTIN 300MG CAPSULE PO SCH (15:02)
[2022-07-26] MEDS: HYDROCODONE/ACETAMINOPHEN 5/325MG TABLET PO PRN (17:01)
[2022-07-26] MEDS: ATORVASTATIN CALCIUM 40MG TABLET PO SCH (21:53)
[2022-07-26] MEDS: HYDROCODONE/ACETAMINOPHEN 10/325MG TABLET PO PRN (21:54)
[2022-07-27] VITALS (7 sets, daily range): BP systolic 82–117; BP diastolic 47–62
[2022-07-27] MEDS: FUROSEMIDE 40MG/4ML VIAL IVP SCH (06:50)
[2022-07-27 07:31] LABS: BASOPHILS % 0.4 % (0.0-2.0); EOSINOPHILS % 0.8 % (0.0-5.0); HEMATOCRIT. 32.9 % (36.0-48.0); HEMOGLOBIN. 10.4 g/dL (12.0-16.0); LYMPHOCYTES % 36.6 % (20.0-50.0); MEAN CORPUSCULAR HEMOGLOBIN 25.8 pg (28.0-32.0); MEAN CORPUSCULAR VOLUME 81.7 fL (81.0-99.0); MEAN PLATELET VOLUME 7.7 fl (7.4-10.4); MONOCYTES % 10.2 % (2.0-8.0); PLATELET 247 x1000/uL (130-400); RED BLOOD CELL COUNT 4.03 mill/uL (4.2-5.4); RED CELL DISTRIBUTION WIDTH 15.4 % (11.6-14.6)
[2022-07-27] MEDS: BLOOD SUGAR DIAGNOSTIC STRIP TEST SCH ×4 (07:40→20:27)
[2022-07-27 07:59] LABS: CHLORIDE 93 mEq/L (98-107)
[2022-07-27] MEDS: INSULIN LISPRO 100 UNITS/ML SUBCUT SCH ×4 (08:10→21:00)
[2022-07-27] MEDS: AMLODIPINE 5MG TABLET PO SCH (09:00)
[2022-07-27] MEDS: CARVEDILOL 3.125 MG TABLET PO SCH ×2 (09:00→20:28)
[2022-07-27] MEDS: ENOXAPARIN 40MG/0.4ML SYR SUBCUT SCH (09:21)
[2022-07-27] MEDS: CLOPIDOGREL 75MG TABLET PO SCH (09:22)
[2022-07-27] MEDS: FAMOTIDINE 20MG TABLET PO SCH (09:22)
[2022-07-27] MEDS: GABAPENTIN 300MG CAPSULE PO SCH (09:22)
[2022-07-27] MEDS: ASPIRIN 81MG TABLET PO SCH (09:22)
[2022-07-27] MEDS: INSULIN GLARGINE 100 UNITS/ML SUBCUT SCH (09:28)
[2022-07-27] MEDS: HYDROCODONE/ACETAMINOPHEN 5/325MG TABLET PO PRN (16:41)
[2022-07-27] MEDS ORDERED: ONDANSETRON 4MG ODT PO PRN (20:40)
[2022-07-27] MEDS: ACETAMINOPHEN 325MG TABLET PO PRN (20:56)
[2022-07-27] MEDS: ATORVASTATIN CALCIUM 40MG TABLET PO SCH (20:56)
[2022-07-28] VITALS: BP 108/61
[2022-07-28 04:00] VITALS: BP 104/59
[2022-07-28 05:39] LABS: BASOPHILS % 0.3 % (0.0-2.0); EOSINOPHILS % 0.7 % (0.0-5.0); HEMATOCRIT. 32.2 % (36.0-48.0); HEMOGLOBIN. 10.1 g/dL (12.0-16.0); LYMPHOCYTES % 36.2 % (20.0-50.0); MEAN CORPUSCULAR HEMOGLOBIN 25.9 pg (28.0-32.0); MEAN CORPUSCULAR VOLUME 82.3 fL (81.0-99.0); MEAN PLATELET VOLUME 7.5 fl (7.4-10.4); MONOCYTES % 11.5 % (2.0-8.0); NEUTROPHILS % 51.3 % (40.0-76.0); PLATELET 246 x1000/uL (130-400); RED BLOOD CELL COUNT 3.91 mill/uL (4.2-5.4); RED CELL DISTRIBUTION WIDTH 15.4 % (11.6-14.6)
[2022-07-28] MEDS: BLOOD SUGAR DIAGNOSTIC STRIP TEST SCH ×4 (06:40→20:59)
[2022-07-28] MEDS: INSULIN LISPRO 100 UNITS/ML SUBCUT SCH ×4 (07:41→21:09)
[2022-07-28 08:00] VITALS: BP 99/60
[2022-07-28] MEDS: ENOXAPARIN 40MG/0.4ML SYR SUBCUT SCH (08:44)
[2022-07-28] MEDS: FAMOTIDINE 20MG TABLET PO SCH (08:44)
[2022-07-28] MEDS: ASPIRIN 81MG TABLET PO SCH (08:44)
[2022-07-28] MEDS: AMLODIPINE 5MG TABLET PO SCH (08:45)
[2022-07-28] MEDS: CLOPIDOGREL 75MG TABLET PO SCH (08:45)
[2022-07-28] MEDS: CARVEDILOL 3.125 MG TABLET PO SCH ×2 (08:45→21:07)
[2022-07-28] MEDS: GABAPENTIN 300MG CAPSULE PO SCH (08:45)
[2022-07-28 09:10] LABS: CHLORIDE 93 mEq/L (98-107)
[2022-07-28] MEDS: HYDROCODONE/ACETAMINOPHEN 5/325MG TABLET PO PRN (09:22)
[2022-07-28] MEDS: INSULIN GLARGINE 100 UNITS/ML SUBCUT SCH (10:19)
[2022-07-28 12:00] VITALS: BP 113/76
[2022-07-28] MEDS: LIDOCAINE 5% PATCH TOP SCH (13:18)
[2022-07-28] MEDS ORDERED: SODIUM CHLORIDE 0.9% 250 ML IV ONE (14:45)
[2022-07-28 16:00] VITALS: BP 139/79
[2022-07-28] MEDS: SODIUM CHLORIDE 0.9% 1,000 ML IV SCH (16:14)
[2022-07-28 20:00] VITALS: BP 93/57
[2022-07-28] MEDS: ATORVASTATIN CALCIUM 40MG TABLET PO SCH (21:06)
[2022-07-29] VITALS: BP 111/67
[2022-07-29] MEDS: SODIUM CHLORIDE 0.9% 1,000 ML IV SCH (02:32)
[2022-07-29 04:00] VITALS: BP 103/61
[2022-07-29] MEDS: BLOOD SUGAR DIAGNOSTIC STRIP TEST SCH ×4 (06:49→21:38)
[2022-07-29 07:00] LABS: BASOPHILS % 0.3 % (0.0-2.0); EOSINOPHILS % 1.1 % (0.0-5.0); HEMOGLOBIN. 10.7 g/dL (12.0-16.0); LYMPHOCYTES % 29.4 % (20.0-50.0); MEAN CORPUSCULAR HEMOGLOBIN 25.7 pg (28.0-32.0); MEAN PLATELET VOLUME 7.4 fl (7.4-10.4); MONOCYTES % 10.7 % (2.0-8.0); NEUTROPHILS % 58.5 % (40.0-76.0); PLATELET 251 x1000/uL (130-400); RED BLOOD CELL COUNT 4.17 mill/uL (4.2-5.4); RED CELL DISTRIBUTION WIDTH 15.6 % (11.6-14.6)
[2022-07-29 07:36] LABS: CHLORIDE 91 mEq/L (98-107)
[2022-07-29 08:00] VITALS: BP 105/47
[2022-07-29] MEDS: INSULIN LISPRO 100 UNITS/ML SUBCUT SCH ×4 (08:10→21:50)
[2022-07-29] MEDS: AMLODIPINE 2.5MG TABLET PO SCH (09:00)
[2022-07-29] MEDS: CARVEDILOL 3.125 MG TABLET PO SCH ×2 (09:00→21:00)
[2022-07-29] MEDS: ASPIRIN 81MG TABLET PO SCH (09:11)
[2022-07-29] MEDS: CLOPIDOGREL 75MG TABLET PO SCH (09:12)
[2022-07-29] MEDS: FAMOTIDINE 20MG TABLET PO SCH (09:12)
[2022-07-29] MEDS: GABAPENTIN 300MG CAPSULE PO SCH (09:13)
[2022-07-29] MEDS: ENOXAPARIN 40MG/0.4ML SYR SUBCUT SCH (09:14)
[2022-07-29] MEDS: LIDOCAINE 5% PATCH TOP SCH (09:14)
[2022-07-29] MEDS: DOCUSATE SODIUM 100MG CAPSULE PO PRN (09:15)
[2022-07-29] MEDS: INSULIN GLARGINE 100 UNITS/ML SUBCUT SCH (09:58)
[2022-07-29] MEDS ORDERED: AMITRIPTYLINE 10MG TABLET PO NR (11:30)
[2022-07-29] MEDS ORDERED: FUROSEMIDE 40MG TABLET PO NR (11:30)
[2022-07-29] MEDS ORDERED: POTASSIUM CHLORIDE 10MEQ TABLET SR PO NR (11:30)
[2022-07-29 12:00] VITALS: BP 105/69
[2022-07-29 16:00] VITALS: BP 100/51
[2022-07-29] MEDS: ONDANSETRON HCL 4MG/2ML INJ IV PRN (16:54)
[2022-07-29 20:00] VITALS: BP 84/42
[2022-07-29] MEDS ORDERED: NOREPINEPHRINE 8 MG in DEXT 5% WATER 242 ML IV PRN (20:45)
[2022-07-29] MEDS ORDERED: NOREPINEPHRINE 8 MG in DEXTROSE 5% WATER 250 ML IV PRN (21:00)
[2022-07-29] MEDS ORDERED: NOREPINEPHRINE 8MG/250ML PMX 250 ML IV PRN (21:00)
[2022-07-29] MEDS: ATORVASTATIN CALCIUM 40MG TABLET PO SCH (21:43)
[2022-07-29] MEDS: AMITRIPTYLINE 10MG TABLET PO SCH (21:43)
[2022-07-30] VITALS (8 sets, daily range): BP systolic 80–145; BP diastolic 35–77
[2022-07-30] MEDS ORDERED: SODIUM CHLORIDE 0.9% 250 ML IV ONE
[2022-07-30] MEDS: BLOOD SUGAR DIAGNOSTIC STRIP TEST SCH ×4 (06:13→21:06)
[2022-07-30 07:53] LABS: BASOPHILS % 0.3 % (0.0-2.0); EOSINOPHILS % 0.3 % (0.0-5.0); HEMATOCRIT. 33.8 % (36.0-48.0); HEMOGLOBIN. 10.5 g/dL (12.0-16.0); LYMPHOCYTES % 22.8 % (20.0-50.0); MEAN CORPUSCULAR HEMOGLOBIN 25.7 pg (28.0-32.0); MEAN CORPUSCULAR VOLUME 82.8 fL (81.0-99.0); MEAN PLATELET VOLUME 7.6 fl (7.4-10.4); MONOCYTES % 10.7 % (2.0-8.0); NEUTROPHILS % 65.9 % (40.0-76.0); PLATELET 288 x1000/uL (130-400); RED BLOOD CELL COUNT 4.08 mill/uL (4.2-5.4); RED CELL DISTRIBUTION WIDTH 15.5 % (11.6-14.6)
[2022-07-30] MEDS: INSULIN LISPRO 100 UNITS/ML SUBCUT SCH ×4 (08:10→21:05)
[2022-07-30] MEDS ORDERED: FENTANYL CITRATE/PF 50MCG/ML 2ML VIAL ONE (08:41)
[2022-07-30] MEDS ORDERED: MIDAZOLAM HCL 2 MG/2 ML VIAL ONE (08:42)
[2022-07-30] MEDS ORDERED: LIDOCAINE HCL/PF 1% 10 MG/ML 5ML VIAL ONE ×2 (08:47→09:11)
[2022-07-30] MEDS: FAMOTIDINE 20MG TABLET PO SCH ×2 (09:00→11:31)
[2022-07-30] MEDS: FUROSEMIDE 40MG TABLET PO SCH (09:00)
[2022-07-30] MEDS: ASPIRIN 81MG TABLET PO SCH (09:00)
[2022-07-30] MEDS: LIDOCAINE 5% PATCH TOP SCH ×2 (09:00→11:31)
[2022-07-30] MEDS: CLOPIDOGREL 75MG TABLET PO SCH (09:00)
[2022-07-30] MEDS: AMLODIPINE 2.5MG TABLET PO SCH (09:00)
[2022-07-30] MEDS: GABAPENTIN 300MG CAPSULE PO SCH ×2 (09:00→11:32)
[2022-07-30] MEDS: CARVEDILOL 3.125 MG TABLET PO SCH ×2 (09:00→20:44)
[2022-07-30] MEDS: POTASSIUM CHLORIDE 10MEQ TABLET SR PO SCH ×2 (09:00→11:31)
[2022-07-30] MEDS ORDERED: HEPARIN 1000 UNITS/ML 10ML ONE (09:27)
[2022-07-30] MEDS: INSULIN GLARGINE 100 UNITS/ML SUBCUT SCH (10:00)
[2022-07-30] MEDS ORDERED: ASPIRIN 325MG TABLET ONE (10:14)
[2022-07-30] MEDS ORDERED: CLOPIDOGREL 75MG TABLET ONE (10:14)
[2022-07-30] MEDS ORDERED: ONDANSETRON HCL 4MG/2ML INJ IV PRN (10:45)
[2022-07-30] MEDS ORDERED: ATROPINE SULFATE 1MG/10ML SYR IV PRN (10:45)
[2022-07-30] MEDS ORDERED: ACETAMINOPHEN 325MG TABLET PO PRN (10:45)
[2022-07-30] MEDS: ACETAMINOPHEN 325MG TABLET PO PRN ×2 (11:30→20:43)
[2022-07-30] MEDS ORDERED: ENOXAPARIN 40MG/0.4ML SYR SUBCUT SCH (20:00)
[2022-07-30] MEDS: ATORVASTATIN CALCIUM 40MG TABLET PO SCH (20:43)
[2022-07-30] MEDS: AMITRIPTYLINE 10MG TABLET PO SCH (20:43)
[2022-07-31] VITALS: BP 94/66
[2022-07-31 04:00] VITALS: BP 108/68
[2022-07-31] MEDS: BLOOD SUGAR DIAGNOSTIC STRIP TEST SCH ×2 (06:23→11:50)
[2022-07-31] MEDS: INSULIN LISPRO 100 UNITS/ML SUBCUT SCH ×2 (06:24→12:45)
[2022-07-31 06:48] LABS: HEMATOCRIT. 31.2 % (36.0-48.0); HEMOGLOBIN. 9.8 g/dL (12.0-16.0); MEAN CORPUSCULAR HEMOGLOBIN 25.7 pg (28.0-32.0); MEAN CORPUSCULAR VOLUME 81.8 fL (81.0-99.0); MEAN PLATELET VOLUME 7.4 fl (7.4-10.4); PLATELET 285 x1000/uL (130-400); RED BLOOD CELL COUNT 3.81 mill/uL (4.2-5.4); RED CELL DISTRIBUTION WIDTH 15.7 % (11.6-14.6)
[2022-07-31 08:00] VITALS: BP 119/76
[2022-07-31] MEDS: DOCUSATE SODIUM 100MG CAPSULE PO PRN (08:57)
[2022-07-31] MEDS: GABAPENTIN 300MG CAPSULE PO SCH (08:57)
[2022-07-31] MEDS: FAMOTIDINE 20MG TABLET PO SCH (08:57)
[2022-07-31] MEDS: POTASSIUM CHLORIDE 10MEQ TABLET SR PO SCH (08:57)
[2022-07-31] MEDS: FUROSEMIDE 40MG TABLET PO SCH (08:57)
[2022-07-31] MEDS: CARVEDILOL 3.125 MG TABLET PO SCH (08:58)
[2022-07-31] MEDS: LIDOCAINE 5% PATCH TOP SCH (08:58)
[2022-07-31] MEDS: AMLODIPINE 2.5MG TABLET PO SCH (08:58)
[2022-07-31] MEDS ORDERED: CLOPIDOGREL 75MG TABLET PO SCH (09:00)
[2022-07-31] MEDS ORDERED: ASPIRIN 325MG TABLET PO SCH (09:00)
[2022-07-31 10:00] VITALS: BP 103/78
[2022-07-31] MEDS ORDERED: COR3 PO (11:25)
[2022-07-31] MEDS ORDERED: ASPI-986 PO (11:25)
[2022-07-31] MEDS ORDERED: AMIT10TA6 PO (11:25)
[2022-07-31] MEDS ORDERED: LIP40 PO (11:25)
[2022-07-31 12:00] VITALS: BP 106/73
[2022-07-31] MEDS: INSULIN GLARGINE 100 UNITS/ML SUBCUT SCH (12:46)
[2022-07-31 12:58] VITALS: BP 103/78
[2022-07-31 13:30] LABS: NUCLEATED RED BLOOD CELLS 1 /100 WBC; PLATELET ESTIMATE NORMAL
[2022-07-31 16:19] LABS: CHLORIDE 96 mEq/L (98-107)
== END 2022-07-31 15:30 | disposition home or self-care (01) | DRG 175 ==
LOC: ER 15:22 → EDBEDREQTM 16:44 → EDBEDREQ 16:44 → EDBEDREQTM 18:03 → EDBEDREQ 18:03 → 7WST 20:02 → 3WST 07-30 10:39
PROVIDERS: ADMIT Internal Medicine; ATTEND Internal Medicine
PROC: 0270356 Dilation of Coronary Artery, One Artery, Bifurcation, with Two Drug-eluting Intraluminal Devices, Percutaneous Approach (ICD-10-PCS; principal; 2022-07-30)
PROC: B211YZZ Fluoroscopy of Multiple Coronary Arteries using Other Contrast (ICD-10-PCS; 2022-07-30)
DX: T82.855A Stenosis of coronary artery stent, initial encounter (principal); I21.4 Non-ST elevation (NSTEMI) myocardial infarction; I50.43 Acute on chronic combined systolic (congestive) and diastolic (congestive) heart failure; I27.20 Pulmonary hypertension, unspecified; E87.1 Hypo-osmolality and hyponatremia; E11.9 Type 2 diabetes mellitus without complications; D50.9 Iron deficiency anemia, unspecified; I42.9 Cardiomyopathy, unspecified; I11.0 Hypertensive heart disease with heart failure; D64.9 Anemia, unspecified; E78.5 Hyperlipidemia, unspecified; I25.10 Atherosclerotic heart disease of native coronary artery without angina pectoris; J44.9 Chronic obstructive pulmonary disease, unspecified; Z20.822 Contact with and (suspected) exposure to COVID-19; I25.5 Ischemic cardiomyopathy; F17.210 Nicotine dependence, cigarettes, uncomplicated; F41.9 Anxiety disorder, unspecified; F32.A Depression, unspecified; Z79.899 Other long term (current) drug therapy; Z79.84 Long term (current) use of oral hypoglycemic drugs; Z95.5 Presence of coronary angioplasty implant and graft; I25.2 Old myocardial infarction; Z79.02 Long term (current) use of antithrombotics/antiplatelets; Z79.4 Long term (current) use of insulin; Z79.82 Long term (current) use of aspirin; Y83.1 Surgical operation with implant of artificial internal device as the cause of abnormal reaction of the patient, or of later complication, without mention of misadventure at the time of the procedure; Y92.89 Other specified places as the place of occurrence of the external cause
CPT/HCPCS: 36415; 71045; 71110; 76700; 80048; 80053; 80061; 80305; 80320; 82570; 82728; 82962; 83036; 83540; 83550; 83605; 83735; 83880; 83930; 83935; 84100; 84145; 84300; 84439; 84443; 84484; 85025; 85027; 85347; 85379; 87426; 92928; 93005; 93306; 93454; 93970; 99291; C1725; C1760; C1769; C1874; C1887; C1893; J1644; J1650; J1815; J1940; J2250; J2405; J3010; J3490; J7030; Q0162; G0480

== ENCOUNTER 2022-08-03 15:20 | Emergency (ER) | payer MEDICAID ==
[~2022-08-03] VITALS: Ht 172.7 cm; Wt 78.0 kg
[~2022-08-03 15:20] MED LIST changes: +AMIT10TA6 PO; +ASPI-986 PO; +LIP40 PO
[2022-08-03 15:27] VITALS: BP 105/50
== END 2022-08-03 22:53 | disposition left against medical advice (07) ==
LOC: ER 15:20
DX: Z53.21 Procedure and treatment not carried out due to patient leaving prior to being seen by health care provider (principal)

== ENCOUNTER 2022-08-13 06:37 | Inpatient (IN) | payer MEDICAID ==
[~2022-08-13] VITALS: Ht 175.3 cm; Wt 91.2 kg
[2022-08-13] MEDS ORDERED: FUROSEMIDE 100MG/10ML VIAL IVP ONE (07:30)
[2022-08-13] MEDS ORDERED: FUROSEMIDE 100MG/10ML VIAL IVP NR (09:45)
[2022-08-13 10:34] LABS: BASOPHILS % 0.3 % (0.0-2.0); CHLORIDE 96 mEq/L (98-107); EOSINOPHILS % 0.4 % (0.0-5.0); HEMATOCRIT. 36.8 % (36.0-48.0); HEMOGLOBIN. 11.2 g/dL (12.0-16.0); MEAN CORPUSCULAR HEMOGLOBIN 24.4 pg (28.0-32.0); MEAN CORPUSCULAR VOLUME 79.9 fL (81.0-99.0); MEAN PLATELET VOLUME 7.4 fl (7.4-10.4); MONOCYTES % 5.5 % (2.0-8.0); NEUTROPHILS % 73.8 % (40.0-76.0); PLATELET 249 x1000/uL (130-400); RED BLOOD CELL COUNT 4.61 mill/uL (4.2-5.4); RED CELL DISTRIBUTION WIDTH 15.9 % (11.6-14.6)
[2022-08-13 10:36] LABS: INR 1.1; PARTIAL THROMBOPLASTIN TIME 27.6 sec (23.4-31.0); PROTHROMBIN TIME 11.8 sec (9.6-11.0)
[2022-08-13] MEDS ORDERED: MAGNESIUM/ALUMINUM HYDROXIDE/SIMETHICONE 30ML UDC PO PRN (12:15)
[2022-08-13] MEDS ORDERED: ONDANSETRON HCL 4MG/2ML INJ IV PRN (12:15)
[2022-08-13] MEDS ORDERED: TRAMADOL 50MG TABLET PO PRN (12:15)
[2022-08-13] MEDS ORDERED: DOCUSATE SODIUM 100MG CAPSULE PO PRN (12:15)
[2022-08-13] MEDS ORDERED: ENOXAPARIN 40MG/0.4ML SYR SUBCUT SCH (12:15)
[2022-08-13] MEDS ORDERED: GUAIFENESIN 200MG/10ML SUGAR FREE UDC PO PRN (12:15)
[2022-08-13] MEDS ORDERED: ACETAMINOPHEN 325MG TABLET PO PRN (12:15)
[2022-08-13] MEDS: CLOPIDOGREL 75MG TABLET PO SCH (12:29)
[2022-08-13] MEDS: ENOXAPARIN 40MG/0.4ML SYR SUBCUT SCH (12:30)
[2022-08-13] MEDS ORDERED: NALOXONE HCL 0.4MG/ML VIAL IV PRN (12:30)
[2022-08-13] MEDS ORDERED: DEXTROSE 50% WATER 50ML SYRINGE IV PRN (15:30)
[2022-08-13] MEDS: GABAPENTIN 300MG CAPSULE PO SCH (16:26)
[2022-08-13] MEDS: METFORMIN HCL 500MG TABLET PO SCH (16:26)
[2022-08-13] MEDS: FUROSEMIDE 40MG/4ML VIAL IV SCH ×2 (16:26→23:25)
[2022-08-13] MEDS: CARVEDILOL 3.125 MG TABLET PO SCH (16:26)
[2022-08-13] MEDS ORDERED: FUROSEMIDE 40MG/4ML VIAL IV SCH ×2 (17:15)
[2022-08-13] MEDS: BLOOD SUGAR DIAGNOSTIC STRIP TEST SCH ×2 (17:21→21:00)
[2022-08-13] MEDS: INSULIN LISPRO 100 UNITS/ML SUBCUT SCH ×2 (17:38→21:00)
[2022-08-13] MEDS: NITROGLYCERIN OINT 1GM/INCH UDPKT TD SCH ×2 (17:44→22:00)
[2022-08-13] MEDS ORDERED: AMITRIPTYLINE 10MG TABLET PO SCH (21:00)
[2022-08-13] MEDS ORDERED: ATORVASTATIN CALCIUM 40MG TABLET PO SCH (21:00)
[2022-08-13 21:10] VITALS: BP 109/69
[2022-08-14 00:17] VITALS: BP 101/64
[2022-08-14 04:00] VITALS: BP 102/62
[2022-08-14] MEDS: NITROGLYCERIN OINT 1GM/INCH UDPKT TD SCH (05:30)
[2022-08-14] MEDS: BLOOD SUGAR DIAGNOSTIC STRIP TEST SCH (06:11)
[2022-08-14] MEDS: INSULIN LISPRO 100 UNITS/ML SUBCUT SCH (06:11)
[2022-08-14 07:37] LABS: BASOPHILS % 0.3 % (0.0-2.0); EOSINOPHILS % 1.3 % (0.0-5.0); HEMATOCRIT. 34.9 % (36.0-48.0); HEMOGLOBIN. 10.6 g/dL (12.0-16.0); MEAN CORPUSCULAR HEMOGLOBIN 24.4 pg (28.0-32.0); MEAN PLATELET VOLUME 7.3 fl (7.4-10.4); MONOCYTES % 7.8 % (2.0-8.0); NEUTROPHILS % 56.6 % (40.0-76.0); PLATELET 228 x1000/uL (130-400); RED BLOOD CELL COUNT 4.36 mill/uL (4.2-5.4); RED CELL DISTRIBUTION WIDTH 15.6 % (11.6-14.6)
[2022-08-14 07:57] LABS: CHLORIDE 96 mEq/L (98-107)
[2022-08-14 08:00] VITALS: BP 110/66
[2022-08-14] MEDS ORDERED: ASPIRIN 81MG EC TABLET PO SCH (08:00)
[2022-08-14 08:07] LABS: HDL CHOLESTEROL 53 mg/dL (40-59); LDL CHOLESTEROL 59 mg/dL (5-100)
[2022-08-14] MEDS: METFORMIN HCL 500MG TABLET PO SCH (08:42)
[2022-08-14] MEDS: CLOPIDOGREL 75MG TABLET PO SCH (08:42)
[2022-08-14] MEDS: GABAPENTIN 300MG CAPSULE PO SCH (08:42)
[2022-08-14] MEDS: FUROSEMIDE 40MG/4ML VIAL IV SCH (08:43)
[2022-08-14] MEDS: CARVEDILOL 3.125 MG TABLET PO SCH (08:43)
[2022-08-14] MEDS: ENOXAPARIN 40MG/0.4ML SYR SUBCUT SCH (08:49)
[2022-08-14] MEDS ORDERED: AMLODIPINE 10MG TABLET PO SCH (09:00)
[2022-08-14 10:49] VITALS: BP 115/68
== END 2022-08-14 12:00 | disposition home or self-care (01) | DRG 194 ==
LOC: ER 06:41 → 7WST 10:42
PROVIDERS: ADMIT Hospitalist; ATTEND Hospitalist
DX: I11.0 Hypertensive heart disease with heart failure (principal); I42.9 Cardiomyopathy, unspecified; E87.1 Hypo-osmolality and hyponatremia; E11.65 Type 2 diabetes mellitus with hyperglycemia; I25.10 Atherosclerotic heart disease of native coronary artery without angina pectoris; Z20.822 Contact with and (suspected) exposure to COVID-19; I50.23 Acute on chronic systolic (congestive) heart failure; E78.5 Hyperlipidemia, unspecified; R74.01 Elevation of levels of liver transaminase levels; J44.9 Chronic obstructive pulmonary disease, unspecified; F41.9 Anxiety disorder, unspecified; Z79.899 Other long term (current) drug therapy; Z79.02 Long term (current) use of antithrombotics/antiplatelets; Z79.82 Long term (current) use of aspirin; Z87.891 Personal history of nicotine dependence; Z90.710 Acquired absence of both cervix and uterus; Z82.49 Family history of ischemic heart disease and other diseases of the circulatory system
CPT/HCPCS: 36415; 71045; 80053; 80061; 82962; 83880; 84484; 85025; 87426; 93005; 93970; 99285; C9803; J1650; J1815; J1940